=== PATIENT | male | born 1940 | race Caucasian/White ===

== ENCOUNTER → 2024-05-28 | Outpatient (BNVA) | payer MEDICARE, BC, SELFPAY | END | disposition home or self-care (01) | PROVIDERS: PCP Nurse Practitioner Family; Referring Provider Nurse Practitioner Family; Visit Provider Nurse Practitioner Family | DX: S63.253A Unspecified dislocation of left middle finger, initial encounter (principal); S63.251A Unspecified dislocation of left index finger, initial encounter | CPT/HCPCS: 90471; 90715; 99214 ==

== ENCOUNTER → 2024-06-04 | Outpatient (BNVA) | payer MEDICARE, BC, SELFPAY | END | disposition home or self-care (01) | PROVIDERS: PCP Nurse Practitioner Family; Referring Provider Nurse Practitioner Family; Visit Provider Nurse Practitioner Family | DX: S61.312A Laceration without foreign body of right middle finger with damage to nail, initial encounter (principal) | CPT/HCPCS: 99213 ==